=== PATIENT | male | born 1940 | race Caucasian/White ===

== ENCOUNTER 2020-08-09 23:01 | Emergency (ER) | payer MEDICARE, OTHER ==
[~2020-08-09] VITALS: Ht 177.8 cm; Wt 81.6 kg
[2020-08-10 00:45] VITALS: BP 178/91
--- NOTE | 2020-08-10 00:58 | NUR ---
RADIOLOGY AT BEDSIDE
== END 2020-08-10 01:05 | disposition home or self-care (01) ==
LOC: ER 23:08
DX: S66.811A Strain of other specified muscles, fascia and tendons at wrist and hand level, right hand, initial encounter (principal); I10 Essential (primary) hypertension; W01.0XXA Fall on same level from slipping, tripping and stumbling without subsequent striking against object, initial encounter; Y93.89 Activity, other specified; Y92.89 Other specified places as the place of occurrence of the external cause; Y99.8 Other external cause status
CPT/HCPCS: 73110